=== PATIENT | female | born 1995 | race Caucasian/White ===

== ENCOUNTER 2018-05-20 07:45 | Emergency (ER) | payer OTHER ==
[2018-05-20 08:25] LABS: BASO % 0.9 % (0.0-1.0); EOS # 0.2 10^3/uL (0.0-0.50); EOS % 5.5 % (0.0-3.0); HEMATOCRIT 40.3 % (36.0-47.0); HEMOGLOBIN 14.2 g/dl (12.0-15.5); IMMATURE GRANULOCYTE % 0.3 % (0-3.0); LYMPH # 1.6 10^3/uL (1.5-6.5); LYMPH % 45.2 % (24.0-44.0); MEAN CORPUSCULAR HEMOGLOBIN 29.7 pg (27.0-33.0); MEAN CORPUSCULAR HGB CONC 35.2 g/dl (32.0-36.5); MEAN CORPUSCULAR VOLUME 84.3 fl (80.0-96.0); MONO # 0.4 10^3/uL (0.0-0.8); MONO % 12.7 % (0.0-5.0); NEUTROPHILS # 1.2 10^3/uL (1.8-7.7); NEUTROPHILS % 35.4 % (36.0-66.0); PLATELET COUNT, AUTOMATED 267 10^3/uL (150-450); RED BLOOD COUNT 4.78 10^6/uL (4.00-5.40); RED CELL DISTRIBUTION WIDTH 12.4 % (11.5-14.5); WHITE BLOOD COUNT 3.5 10^3/uL (4.0-10.0)
[2018-05-20 08:44] LABS: HCG, SERUM QUANTITATIVE < 1.0 MIU/ML
[2018-05-20 10:28] LABS: CHLAMYDIA DNA AMPLIFICATION NEGATIVE (NEGATIVE); GC DNA AMPLIFICATION NEGATIVE (NEGATIVE)
== END 2018-05-20 09:51 | disposition home or self-care (01) ==
LOC: M ED 07:45
DX: N93.9 Abnormal uterine and vaginal bleeding, unspecified (principal); J45.909 Unspecified asthma, uncomplicated
CPT/HCPCS: 84702

== ENCOUNTER → 2020-03-11 | Outpatient (REF) | payer OTHER ==
[2020-03-11 16:50] LABS: HEMATOCRIT 39.4 % (36.0-47.0); HEMOGLOBIN 13.5 g/dl (12.0-15.5); MEAN CORPUSCULAR HEMOGLOBIN 30.2 pg (27.0-33.0); MEAN CORPUSCULAR HGB CONC 34.3 g/dl (32.0-36.5); MEAN CORPUSCULAR VOLUME 88.1 fl (80.0-96.0); PLATELET COUNT, AUTOMATED 245 10^3/uL (150-450); RED BLOOD COUNT 4.47 10^6/uL (4.00-5.40); WHITE BLOOD COUNT 6.7 10^3/uL (4.0-10.0)
[2020-03-11 18:31] LABS: CHLAMYDIA DNA AMPLIFICATION NEGATIVE (NEGATIVE); GC DNA AMPLIFICATION NEGATIVE (NEGATIVE)
[2020-03-12 21:05] LABS: HIV 1&2 SCREEN CENTAUR NEGATIVE (NEGATIVE); RUBELLA IgG QUALITATIVE IMMUNE (IMMUNE)
[2020-03-13 09:40] LABS: HEPATITIS B SURFACE ANTIGEN NEGATIVE (NEGATIVE); HEPATITIS C VIRUS ABY INDEX 0.1 INDEX (<0.8)
== END ==
LOC: M PLALAB 14:45
PROVIDERS: ATTEND Advanced Practice Midwife
DX: Z34.01 Encounter for supervision of normal first pregnancy, first trimester (principal)

== ENCOUNTER → 2020-04-17 | Outpatient (CLI) | payer OTHER ==
--- NOTE | 2020-04-17 18:03 | REP ---
REASON FOR EXAM: anatomy. Multiple ultrasonographic images of the gravid uterus show a single living intrauterine gestation in the transverse head to maternal left position. Doppler interrogation of the heart shows a heart rate of 153 beats per minute. The placenta is posterior, fundal and not low lying. The subjective amniotic fluid volume is within normal limits. The cervix measures 3 cm in length and is closed. Evaluation of the maternal adnexal spaces showed no abnormalities. BPD 4.5 cm = 19 weeks 3 days HC 16.5 cm = 19 weeks 2 days AC 13.9 cm = 19 weeks 2 days FL 3.0 cm = 19 weeks 1 day The estimated weight is 281 grams, which is at the 25th percentile for a 19 week 6 day gestational age. anatomical structures seen as unremarkable are as follows: Thalami, cavum septum pellucidum, cerebellum, cisterna magna, cerebral ventricles, four-chamber heart, right and left ventricular outflow tracts, stomach, cord insertion, three-vessel umbilical cord, kidneys, bladder, spine, and upper and lower extremities. The upper lip was suboptimally visualized. IMPRESSION: Single living intrauterine gestation, as described above. No anomalies were detected, however, I recommend a followup examination to better visualize the upper lip. Based on today's composite criteria, the estimated gestational age is 19 weeks 1 day. The JOSEPH on the worksheet is 09/05/2020, however, the worksheet does not identify whether or not that JOSEPH is based on today's composite criteria or is based on the patient's LMP.
== END ==
LOC: M WHC 10:30
PROVIDERS: ATTEND Advanced Practice Midwife
DX: O32.2XX0 Maternal care for transverse and oblique lie, not applicable or unspecified (principal); Z36.89 Encounter for other specified antenatal screening; Z3A.19 19 weeks gestation of pregnancy

== ENCOUNTER → 2020-05-12 | Outpatient (CLI) | payer OTHER ==
--- NOTE | 2020-05-12 09:13 | REP ---
Clinical: Anatomical evaluation. Comparison: 04/17/2020 . Findings: Examination demonstrates a single live intrauterine in breech presentation. motion is identified by technologist. Placenta is noted posterior and grade I without evidence for placenta previa or abruption. A small anterior succenturiate lobe is suggested. Amniotic fluid volume is normal. Cervix measures 3.5 cm in length and appears closed. No evidence for nuchal cord. Gestational age by LMP 23 weeks 3 days with JOSEPH 09/05/2020 . Gestational age by current measurements 22 weeks 6 days with JOSEPH 09/09/2020 . FHR equals 153 beats per minute. Estimated weight 568 grams ( 37th percentile). Anatomical assessment demonstrates normal structures including cranium, facial features, diaphragm, stomach, cord insertion/three-vessel cord, kidneys/bladder. Impression: 1. Single live intrauterine in breech presentation demonstrating appropriate interval growth. 2. Posterior placenta with suspected anterior succenturiate lobe. 3. In conjunction with prior examination anatomical assessment is essentially complete and normal.
== END ==
LOC: M WHC 08:15
PROVIDERS: ATTEND Nurse Practitioner Women's Health
DX: O09.12 Supervision of pregnancy with history of ectopic pregnancy, second trimester (principal); Z36.2 Encounter for other antenatal screening follow-up; O32.1XX0 Maternal care for breech presentation, not applicable or unspecified; Z3A.23 23 weeks gestation of pregnancy; O43.892 Other placental disorders, second trimester

== ENCOUNTER → 2020-05-18 | Outpatient (REF) | payer OTHER ==
[2020-05-18 13:12] LABS: HEMATOCRIT 35.9 % (36.0-47.0); HEMOGLOBIN 11.8 g/dl (12.0-15.5); MEAN CORPUSCULAR HEMOGLOBIN 30.5 pg (27.0-33.0); MEAN CORPUSCULAR HGB CONC 32.9 g/dl (32.0-36.5); MEAN CORPUSCULAR VOLUME 92.8 fl (80.0-96.0); PLATELET COUNT, AUTOMATED 299 10^3/uL (150-450); RED BLOOD COUNT 3.87 10^6/uL (4.00-5.40); WHITE BLOOD COUNT 7.7 10^3/uL (4.0-10.0)
== END ==
LOC: M PLALAB 10:44
PROVIDERS: ATTEND Nurse Practitioner Women's Health
DX: O09.12 Supervision of pregnancy with history of ectopic pregnancy, second trimester (principal)
CPT/HCPCS: 36415; 82950; 85027; 86850; 86900; 86901; J2790

== ENCOUNTER → 2021-06-28 | Outpatient (REF) | payer OTHER | LOC: M WUC 09:57 | PROVIDERS: ATTEND Physician Assistant | DX: J02.9 Acute pharyngitis, unspecified (principal) ==